=== PATIENT | male | born 1970 | race Caucasian/White ===

== ENCOUNTER 2017-09-18 12:26 | Emergency (ER) | payer OTHER, SELFPAY ==
[~2017-09-18] VITALS: Ht 177.8 cm; Wt 73.6 kg
[2017-09-18] MEDS ORDERED: DIAZEPAM 5 MG TABLET ONE (12:55)
[2017-09-18] MEDS ORDERED: KETOROLAC 30 MG/1 ML ONE (12:55)
[2017-09-18] MEDS ORDERED: KETOROLAC 30 MG/1 ML IM ONE ×2 (13:00)
[2017-09-18] MEDS ORDERED: DIAZEPAM 5 MG TABLET PO ONE ×2 (13:00)
[2017-09-18 14:04] VITALS: BP 135/69
== END 2017-09-18 14:24 | disposition home or self-care (01) ==
LOC: ED 14:00
DX: S39.012A Strain of muscle, fascia and tendon of lower back, initial encounter (principal); X58.XXXA Exposure to other specified factors, initial encounter; Y93.89 Activity, other specified; Y99.8 Other external cause status; Y92.89 Other specified places as the place of occurrence of the external cause
CPT/HCPCS: 72110; 96372; 99284; J1885